=== PATIENT | female | born 1970 | race Caucasian/White ===

== ENCOUNTER 2016-10-23 05:29 | Emergency (ER) | payer OTHER ==
[~2016-10-23] VITALS: Ht 165.1 cm; Wt 68.0 kg
[~2016-10-23 05:29] MED LIST: KETOROLAC TROME10 M1 PO; LEVSIN-SL0.125 MG SL; MEDROL4 M2 PO; TYLENOL WITH C1 EACH PO; ZOFRAN ODT4 M1 SL
--- NOTE | 2016-10-23 06:02 | ED GI/GU/ABDOMINAL COMPLAINT ---
History of Present Illness General Chief Complaint: Abdominal Pain/Flank Pain Stated Complaint: PT C/O ABD PAIN HX GALL STONES Source: patient Exam Limitations: no limitations Vital Signs & Intake/Output Vital Signs & Intake/Output Vital Signs Date Time Temp Pulse Resp B/P B/P Pulse O2 O2 Flow FiO2 Mean Ox Delivery Rate 10/23 0752 96.0 58 18 170/71 100 Room Air 10/23 0602 Room Air 10/23 0548 97.4 73 18 159/97 99 Room Air Allergies Coded Allergies: No Known Allergies (01/04/16) Triage Note: PT TO TRIAGE FROM HOME C/O LLQ PAIN, +N/-V/-D. DENIES URINARY S/SX. PT HAD GALLBLADDER REMOVED 2 MONTHS AGO PER PT. PT DIAPHORETIC. AFEBRILE. Triage Nurses Notes Reviewed? yes ? n Is pt currently ? No Onset: Gradual Duration: day(s):, getting worse Timing: single episode today Quality/Severity: cramping Location: suprapubic Radiation: no radiation Activities at Onset: none Prior Abdominal Problems: none Modifying Factors: Worsens With: palpation, urinating. Associated Symptoms: dysuria, urinary frequency HPI: 46-year-old female in prior good health presents with 1-2 day history of suprapubic cramping type pain, dysuria, increased urinary frequency that became worse this morning. She notes mild nausea and mild discomfort with bowel movements. She has no vaginal discharge or bleeding. She has no back pain vomiting, fever headache syncopal type symptoms chest pain or shortness of breath. She is otherwise well. (BRITANY FLOYD,KYLE Ibarra) Reconcile Medications Estrogenic Subst Conj (Premarin) 0.625 MG TABLET 1 TAB PO DAILY HORMONE ( Reported) Ibuprofen 800 MG TABLET 1 TAB PO TID PRN PAIN Ondansetron HCl (Zofran) 4 MG TABLET 1 TAB PO Q6-8P PRN nausea Pantoprazole Sodium 40 MG TABLET.DR 1 TAB PO PRN ACID REFLUX (Reported) (JOHAN FLOYD,ANGIE) Past History Travel History Traveled to [place] past 21 day No Medical History Any Pertinent Medical History? 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 No (BRITANY FLOYD,KYLE Ibarra) Review of Systems Review of Systems Constitutional: Reports: no symptoms. EENTM: Reports: no symptoms. Respiratory: Reports: no symptoms. Cardiovascular: Reports: no symptoms. GI: Reports: no symptoms. Genitourinary: Reports: no symptoms. Musculoskeletal: Reports: no symptoms. Skin: Reports: no symptoms. Neurological/Psychological: Reports: no symptoms. Hematologic/Endocrine: Reports: no symptoms. Immunologic/Allergic: Reports: no symptoms. All Other Systems: Reviewed and Negative (BRITANY FLOYD,KYLE Ibarra) Physical Exam Physical Exam General Appearance: well developed/nourished Head: atraumatic Eyes: Bilateral: normal appearance. Ears, Nose, Throat, Mouth: hearing grossly normal Neck: normal inspection, supple, full range of motion Respiratory: normal breath sounds, chest non-tender, no respiratory distress Cardiovascular: regular rate/rhythm Gastrointestinal: normal bowel sounds, soft, suprapubic tenderness to palpation no rebound no guarding. No right lower quadrant tenderness. No right upper quadrant tenderness. Back: normal inspection Extremities: normal range of motion Neurologic/Psych: no motor/sensory deficits, awake, alert, oriented x 3 Skin: intact, normal color, warm/dry Core Measures ACS in differential dx? No Severe Sepsis Present: No Septic Shock Present: No (BRITANY FLOYD,KYLE Ibarra) Progress Differential Diagnosis: UTI/pyelo, kidney stone versus other Plan of Care: Orders Procedure Date/time Status Add-on Test (ER Only) 10/23 1035 Active Add-on Test (ER Only) 10/23 0820 Active CULTURE,URINE 10/23 0606 Active URINE DRUGS OF ABUSE 10/23 0606 Active URINALYSIS 10/23 0556 Complete LIPASE 10/23 0556 Complete HEPATIC FUNCTION PANEL 10/23 0556 Complete HUMAN BETA HCG SCREEN 10/23 0556 Complete CBC WITHOUT DIFFERENTIAL 10/23 0556 Complete BASIC METABOLIC PANEL 10/23 05 Complete AMYLASE 10/23 0556 Complete Laboratory Tests 10/23/16 0606: Methadone Screen Pending, Barbiturate Screen Pending, Ur Phencyclidine Scrn Pending, Amphetamines Screen Pending, U Benzodiazepines Scrn Pending, Urine Cocaine Screen Pending, Urine Cannabis Screen Pending, Urinalysis MOD H, Urine Color YEL, Urine Clarity HAZY H, Urine pH 6.0, Ur Specific [place] >= 1.030, Urine Protein 30 H, Urine Ketones NEG, Urine Nitrite NEG, Urine Bilirubin NEG, Urine Urobilinogen 0.2, Ur Leukocyte Esterase NEG, Ur Microscopic SEDIMENT EXAMINED, Urine RBC RARE, Urine WBC 1-3 H, Ur Epithelial Cells MANY H, Urine Crystals 1+ HIPPURATE, Urine Bacteria MANY H, Urine Mucus FEW, Urine Hemoglobin NEG, Urine Glucose NEG 10/23/16 0605: Anion Gap 14, Estimated GFR > 60, BUN/Creatinine Ratio 16.7, Glucose 103 H, Calcium 10.7 H, Total Bilirubin 0.6, Direct Bilirubin 0.3, AST 20, ALT 28, Alkaline Phosphatase 69, Total Protein 7.5, Albumin 4.8, Amylase 64, Lipase 84, Total Beta HCG NEGATIVE, CBC w Diff NO MAN DIFF REQ, RBC 5.28, MCV 86.6, MCH 28.9, RDW 13.7, MPV 8.3, Gran % 73.2, Lymphocytes % 18.6 L, Monocytes % 4.8, Eosinophils % 2.2, Basophils % 1.2, Absolute Granulocytes 9.8 H, Absolute Lymphocytes 2.5, Absolute Monocytes 0.6, Absolute Eosinophils 0.3, Absolute Basophils 0.2, PUBS MCHC 33.4 Microbiology 10/23 06 URINE ROUT: Urine Culture - RECD 7:27 AM Patient signed out to me by Dr. Weaver. Pending CT scan. 8:30 AM STILL NAUSEATED, DIAPHORETIC. C/O SUPRAPUBIC ABDOMINAL PAIN. STILL SUSPECT POSSIBLE RENAL STONE. CT NEGATIVE. U/S TRANSVAGINAL ORDERED. 10:37 AM PATIENT RESTING COMFORTABLY. U/S NEGATIVE. NO PAIN MEDS REQUIRED SINCE 7 AM. WILL DRINK CLEAR LIQUIDS, STRAIN URINE AND FOLLOW UP WITH PCP IN OFFICE. (JOHAN FLOYD,ANGIE) Diagnostic Imaging: Viewed by Me: CT Scan. Discussed w/RAD: CT Scan. Initial ED EKG: none Hand-Off Endorsed To: ANGIE PRADO MD Endorsed Time: 0700 Pending: CT (BRITANY FLOYD,KYLE Ibarra) Diagnostic Imaging: Viewed by Me: Ultrasound. Discussed w/RAD: Ultrasound. Radiology Impression: PATIENT: CHAYITO MORROW PRESENT AGE: 46 PATIENT ACCOUNT NO: [id number] : 70 LOCATION: [facility] ORDERING PHYSICIAN: KYLE WEAVER MD SERVICE DATE: 10/23/16 EXAM TYPE: CAT - CT ABD & PELVIS W/O IV CONTRAS EXAMINATION: CT ABDOMEN AND PELVIS WITHOUT CONTRAST CLINICAL INFORMATION: Lower abdominal pain. Question renal stones. HCG negative. COMPARISON: None TECHNIQUE: Multidetector volumetric imaging was performed from the superior aspect of the liver through the pubic symphysis. Sagittal and coronal reformatted images were obtained on the technologist's workstation. DLP: 497.88 mGy-cm FINDINGS: LUNG BASES: Lung bases are clear. LIVER, GALLBLADDER, AND BILIARY TREE: The unenhanced liver is mildly enlarged. There is no intrahepatic biliary ductal dilation. The gallbladder is surgically absent. PANCREAS: The unenhanced pancreas is unremarkable. SPLEEN: Spleen is unremarkable. ADRENAL GLANDS: No adrenal gland mass. KIDNEYS AND URETERS: The kidneys are normal in size. There are no renal calculi. No hydronephrosis. No ureteric calculi. BLADDER: The minimally distended urinary bladder is unremarkable. GASTROINTESTINAL TRACT: The small bowel and colon demonstrate normal caliber. There is no colonic mural thickening. There is no pericolonic inflammation. There is very mild colonic diverticulosis. No evidence of acute colonic diverticulitis. ABDOMINAL WALL: There is a defect within the anterior abdominal wall at the level of the L3-L4 intervertebral disc. The defect measures 1 cm in craniocaudal dimension and 2.1 cm in transverse dimension. Mesenteric fat herniates through the defect. LYMPH NODES: No lymphadenopathy by size criteria. VASCULAR: No aortic aneurysm. PELVIC VISCERA: The unenhanced uterus is unremarkable. Multiple pelvic phleboliths. No adnexal mass. OSSEOUS STRUCTURES: No aggressive osseous lesion. IMPRESSION: 1. There are no renal, ureteric or urinary bladder calculi. No hydronephrosis. 2. Very mild colonic diverticulosis throughout the sigmoid and descending portions of the colon. No evidence of acute diverticulitis. 3. Anterior abdominal wall hernia containing fat. The defect in the anterior abdominal wall measures 1 cm in craniocaudal dimension and 2.1 cm in transverse dimension. 4. Mild hepatomegaly. DICTATED BY: EYAD BUSTILLO MD DATE/TIME DICTATED:10/23/16746 DATA ANALYSIS MANAGER:LINH DATE/TIME TRANSCRIBED:10/23/16746 CONFIDENTIAL, DO NOT COPY WITHOUT APPROPRIATE AUTHORIZATION. <Electronically signed in Other Vendor System> SIGNED BY: EYAD BUSTILLO MD 10/23/16801, PATIENT: CHAYITO MORROW PRESENT AGE: 46 PATIENT ACCOUNT NO: [id number] : 70 LOCATION: [facility] ORDERING PHYSICIAN: ANGIE PRADO MD SERVICE DATE: 10/23/16827 EXAM TYPE: US - US-TRANSVAGINAL EXAMINATION: US TRANSVAGINAL CLINICAL INFORMATION: Suprapubic abdominal pain. Evaluate for ovarian cyst. COMPARISON: CT abdomen and pelvis from 10/23/2016 TECHNIQUE: Sonographic imaging of the pelvis was performed using transabdominal and transvaginal transducers. In addition, duplex Doppler imaging of the ovaries was performed. FINDINGS: The anteflexed uterus-cervix measures 6.8 cm long. The uterus is 3.3 cm AP and 4 cm in transverse dimension. No evidence of uterine leiomyoma. The endometrium has a normal trilaminar appearance and measures up to 5-6 mm AP. A trace amount of fluid is present within the endocervical canal and a nabothian cyst of the cervix is 0.8 cm AP. No free fluid in the pelvic cul-de-sac. There are no adnexal masses. The right ovary is 2 x 1.1 x 1.6 cm and the left ovary is 2 x 0.8 x 1.4 cm. There is no evidence of an ovarian cyst. Color Doppler images with spectral waveforms show presence of normal arterial flow within each ovary. IMPRESSION: No acute sonographic findings in the pelvis. No evidence of ovarian cyst, ovarian torsion or pelvic free fluid. DICTATED BY: ALAYNA BANKS MD DATE /TIME DICTATED:10/23/161007 DATA ANALYSIS MANAGER:LINH DATE/TIME TRANSCRIBED: 10/23/161007 CONFIDENTIAL, DO NOT COPY WITHOUT APPROPRIATE AUTHORIZATION. < Electronically signed in Other Vendor System> SIGNED BY: ALAYNA ABNKS MD 10/23/16 1018 (ANGIE PRADO MD) Departure Departure Condition: Stable Clinical Impression Primary Impression: Abdominal pain Referrals: DANIELA CHANDRA APRN (PCP/Family) Departure Forms: Customer Survey General Discharge Information (BRITANY FLOYD,KYLE Ibarra) Departure Time of Disposition: 1050 Disposition: HOME OR SELF CARE Additional Instructions: FOLLOW UP WITH ANY CHANDRA IN THE OFFICE. DRINK PLENTY OF FLUIDS AND STRAIN YOUR URINE. TAKE THE MEDICATIONS DIRECTED. RETURN NEEDED. Prescriptions: Current Visit Scripts Ondansetron HCl (Zofran) 1 TAB PO Q6-8P PRN nausea #20 TAB Ibuprofen 1 TAB PO TID PRN PAIN #20 TAB (JOHAN FLOYD,ANGIE)
[2016-10-23] MEDS ORDERED: PREMARIN0.625 M1 PO (06:11)
[2016-10-23] MEDS ORDERED: PANTOPRAZOLE SO40 M1 PO (06:11)
[2016-10-23 06:15] LABS: ABSOLUTE BASOPHIL COUNT 0.2 /CUMM (0.0-0.2); ABSOLUTE EOSINOPHIL COUNT 0.3 /CUMM (0.0-0.7); ABSOLUTE GRANULOCYTE CT 9.8 /CUMM (1.4-6.5); ABSOLUTE LYMPH COUNT 2.5 /CUMM (1.2-3.4); ABSOLUTE MONOCYTE COUNT 0.6 /CUMM (0.10-0.60); BASOPHIL % 1.2 % (0.0-2.0); EOSINOPHIL % 2.2 % (0-5); GRANULOCYTE % 73.2 % (42.2-75.2); HEMATOCRIT 45.7 % (37-47); MEAN CORPUSCULAR HGB 28.9 PG (27.0-31.0); MEAN CORPUSCULAR HGB CONC 33.4 G/DL (33.0-37.0); MEAN CORPUSCULAR VOLUME 86.6 FL (81.0-99.0); MEAN PLATELET VOLUME 8.3 FL (7.4-10.4); PLATELET COUNT 279 /CUMM (130-400); RBC DISTRIBUTION WIDTH 13.7 % (11.5-14.5); RED BLOOD CELL CT 5.28 /CUMM (4.20-5.40); WHITE BLOOD CELL COUNT 13.3 /CUMM (4.8-10.8)
--- NOTE | 2016-10-23 08:02 | CT SCAN REPORT ---
EXAMINATION: CT ABDOMEN AND PELVIS WITHOUT CONTRAST CLINICAL INFORMATION: Lower abdominal pain. Question renal stones. HCG negative. COMPARISON: None TECHNIQUE: Multidetector volumetric imaging was performed from the superior aspect of the liver through the pubic symphysis. Sagittal and coronal reformatted images were obtained on the technologist's workstation. DLP: 497.88 mGy-cm FINDINGS: LUNG BASES: Lung bases are clear. LIVER, GALLBLADDER, AND BILIARY TREE: The unenhanced liver is mildly enlarged. There is no intrahepatic biliary ductal dilation. The gallbladder is surgically absent. PANCREAS: The unenhanced pancreas is unremarkable. SPLEEN: Spleen is unremarkable. ADRENAL GLANDS: No adrenal gland mass. KIDNEYS AND URETERS: The kidneys are normal in size. There are no renal calculi. No hydronephrosis. No ureteric calculi. BLADDER: The minimally distended urinary bladder is unremarkable. GASTROINTESTINAL TRACT: The small bowel and colon demonstrate normal caliber. There is no colonic mural thickening. There is no pericolonic inflammation. There is very mild colonic diverticulosis. No evidence of acute colonic diverticulitis. ABDOMINAL WALL: There is a defect within the anterior abdominal wall at the level of the L3-L4 intervertebral disc. The defect measures 1 cm in craniocaudal dimension and 2.1 cm in transverse dimension. Mesenteric fat herniates through the defect. LYMPH NODES: No lymphadenopathy by size criteria. VASCULAR: No aortic aneurysm. PELVIC VISCERA: The unenhanced uterus is unremarkable. Multiple pelvic phleboliths. No adnexal mass. OSSEOUS STRUCTURES: No aggressive osseous lesion. IMPRESSION: 1. There are no renal, ureteric or urinary bladder calculi. No hydronephrosis. 2. Very mild colonic diverticulosis throughout the sigmoid and descending portions of the colon. No evidence of acute diverticulitis. 3. Anterior abdominal wall hernia containing fat. The defect in the anterior abdominal wall measures 1 cm in craniocaudal dimension and 2.1 cm in transverse dimension. 4. Mild hepatomegaly.
--- NOTE | 2016-10-23 10:18 | ULTRASOUND REPORT ---
EXAMINATION: US TRANSVAGINAL CLINICAL INFORMATION: Suprapubic abdominal pain. Evaluate for ovarian cyst. COMPARISON: CT abdomen and pelvis from 10/23/2016 TECHNIQUE: Sonographic imaging of the pelvis was performed using transabdominal and transvaginal transducers. In addition, duplex Doppler imaging of the ovaries was performed. FINDINGS: The anteflexed uterus-cervix measures 6.8 cm long. The uterus is 3.3 cm AP and 4 cm in transverse dimension. No evidence of uterine leiomyoma. The endometrium has a normal trilaminar appearance and measures up to 5-6 mm AP. A trace amount of fluid is present within the endocervical canal and a nabothian cyst of the cervix is 0.8 cm AP. No free fluid in the pelvic cul-de-sac. There are no adnexal masses. The right ovary is 2 x 1.1 x 1.6 cm and the left ovary is 2 x 0.8 x 1.4 cm. There is no evidence of an ovarian cyst. Color Doppler images with spectral waveforms show presence of normal arterial flow within each ovary. IMPRESSION: No acute sonographic findings in the pelvis. No evidence of ovarian cyst, ovarian torsion or pelvic free fluid.
[2016-10-23] MEDS ORDERED: ZOFRAN4 M2 PO (10:36)
[2016-10-23] MEDS ORDERED: IBUPROFEN800 M1 PO (10:36)
[2016-10-23 10:57] VITALS: BP 154/74
== END 2016-10-23 10:58 ==
LOC: ERH 05:29
PROVIDERS: Pediatrics
DX: R10.32 Left lower quadrant pain (principal)
CPT/HCPCS: 74176; 80307; 81001; 87086; 96374; 96375; J1885; J2405